=== PATIENT | female | born 1995 | race Caucasian/White ===

== ENCOUNTER 2022-07-23 12:03 | Outpatient (CLI) | payer MEDICAID, SELFPAY ==
[2022-07-23 18:59] LABS: Chlamydia DNA Amplified* NOT DETECTED (No Detected); GC DNA Amplified* NOT DETECTED (No Detected)
== END 2022-07-23 12:04 | disposition home or self-care (01) ==
LOC: NFLDREF 12:05
PROVIDERS: Visit Provider Obstetrics & Gynecology
DX: R10.2 Pelvic and perineal pain (principal); Z11.3 Encounter for screening for infections with a predominantly sexual mode of transmission
CPT/HCPCS: 87491; 87591

== ENCOUNTER 2022-07-25 14:59 | Outpatient (CLI) | payer MEDICAID, SELFPAY ==
--- NOTE | 2022-07-25 15:00 | CRLHL7_ITS ---
For Patients: As a result of the Century Cures Act, medical imaging exams and procedure reports are released immediately into your electronic medical record. You may view this report before your referring provider. If you have questions, please contact your health care provider. INDICATION: Pelvic pain COMPARISON: none TECHNIQUE: 2D zhang scale and color Doppler images were acquired of the pelvis using a transabdominal and transvaginal approach. Power Doppler of both ovaries also performed. FINDINGS: Sonographic images demonstrate a normal size and smooth outer contour of the uterus. Uterus measures 8.2 cm in length by 4.5 cm in AP diameter by 5.6 cm in transverse dimension. The myometrium has a normal uniform echotexture. The endometrial lining measures 13 mm in composite thickness. The right ovary measures 4.9 x 2.2 x 3.5 cm in size and the left ovary measures 3.6 x 1.5 x 2.2 cm. The ovaries demonstrate normal arterial and venous blood flow on color Doppler analysis. Normal power Doppler evaluation of both ovaries. No torsion. Hypoechoic cyst right ovary measuring 2.4 x 1.6 x 2.2 cm. Physiologic free fluid noted. There are no suspicious fluid collections within the cul-de-sac. IMPRESSION: 2.4 cm hemorrhagic right ovarian cyst. No excess pelvic free fluid. No uterine fibroid. Endometrium measures 13 millimeters. Dictated by Kip Argueta MD @ 07/26/2022 10:26:02 AM (Electronically Signed)
== END 2022-07-25 15:00 | disposition home or self-care (01) ==
LOC: US 15:02
PROVIDERS: Visit Provider Obstetrics & Gynecology
DX: R10.2 Pelvic and perineal pain (principal); N83.201 Unspecified ovarian cyst, right side
CPT/HCPCS: 76830; 76856; 93976

== ENCOUNTER 2022-08-07 10:19 | Outpatient (CLI) | payer MEDICAID, SELFPAY | END 2022-08-07 10:20 | disposition home or self-care (01) | LOC: NFLDREF 10:21 | PROVIDERS: Visit Provider Obstetrics & Gynecology | DX: N39.0 Urinary tract infection, site not specified (principal) | CPT/HCPCS: 87086; 87186 ==

== ENCOUNTER 2022-11-01 11:48 | Outpatient (CLI) | payer MEDICAID, SELFPAY | END 2022-11-01 11:49 | disposition home or self-care (01) | LOC: NFLDREF 11:49 | PROVIDERS: Visit Provider Obstetrics & Gynecology | DX: R39.9 Unspecified symptoms and signs involving the genitourinary system (principal) | CPT/HCPCS: 87086 ==

== ENCOUNTER 2022-12-13 10:25 | Outpatient (CLI) | payer MEDICAID, SELFPAY | END 2022-12-13 10:26 | disposition home or self-care (01) | LOC: NFLDREF 12-15 09:11 | PROVIDERS: Visit Provider Nurse Practitioner Family | DX: Z79.899 Other long term (current) drug therapy (principal) | CPT/HCPCS: 80053; 82306; 84443 ==

== ENCOUNTER 2023-01-09 09:22 | Outpatient (CLI) | payer MEDICAID, SELFPAY | END 2023-01-09 09:23 | disposition home or self-care (01) | LOC: NFLDREF 01-10 11:11 | PROVIDERS: Visit Provider Physician Assistant | DX: N39.0 Urinary tract infection, site not specified (principal) | CPT/HCPCS: 87086; 87186 ==

== ENCOUNTER 2024-01-02 10:01 | Outpatient (CLI) | payer MEDICAID, SELFPAY | END 2024-01-02 10:02 | disposition home or self-care (01) | PROVIDERS: PCP Internal Medicine; Visit Provider Internal Medicine | DX: D64.9 Anemia, unspecified (principal); Z13.228 Encounter for screening for other metabolic disorders | CPT/HCPCS: 80048; 85610 ==

== ENCOUNTER 2024-01-07 09:27 | Outpatient (CLI) | payer MEDICAID, SELFPAY ==
[2024-01-07 13:35] LABS: Chlamydia DNA Amplified* NOT DETECTED (No Detected); GC DNA Amplified* NOT DETECTED (No Detected)
== END 2024-01-07 09:28 | disposition home or self-care (01) ==
PROVIDERS: PCP Internal Medicine; Visit Provider Registered Nurse
DX: N91.2 Amenorrhea, unspecified (principal); Z11.3 Encounter for screening for infections with a predominantly sexual mode of transmission; Z13.29 Encounter for screening for other suspected endocrine disorder
CPT/HCPCS: 84443; 87491; 87591